=== PATIENT | female | born 1960 | race Caucasian/White ===

== ENCOUNTER 2016-10-12 22:59 | Emergency (ER) | payer OTHER, MEDICAID ==
[~2016-10-12] VITALS: Ht 167.6 cm; Wt 75.0 kg
[~2016-10-12 22:59] MED LIST: IOHEXOL-350 100 ML BOTTLE ONE; SODIUM CHLORIDE 0.9% 10ML VIAL ONE
[2016-10-12] MEDS ORDERED: ONDANSETRON HCL 4MG/2ML VIAL IV STA (23:19)
[2016-10-12] MEDS ORDERED: FAMOTIDINE 20MG/2ML VIAL IV STA (23:19)
[2016-10-12] MEDS ORDERED: MORPHINE SULFATE 4 MG/ML CPJ (NOT FOR IM USE) IV STA (23:19)
[2016-10-12] MEDS ORDERED: SODIUM CHLORIDE 0.9% 1,000 ML IV ONE (23:19)
[2016-10-12] MEDS ORDERED: ASPIRIN 81MG TABLET PO ONE (23:30)
[2016-10-12 23:46] LABS: BASOPHILS % 0.7 % (0.0-2.0); HEMATOCRIT. 42.2 % (36.0-48.0); HEMOGLOBIN. 14.1 g/dL (12.0-16.0); LYMPHOCYTES % 46.2 % (20.0-50.0); MEAN CORPUSCULAR HEMOGLOBIN 32.1 pg (28.0-32.0); MEAN CORPUSCULAR VOLUME 95.9 fL (81.0-99.0); MEAN PLATELET VOLUME 8.4 fl (7.4-10.4); MONOCYTES % 9.1 % (2.0-8.0); PLATELET 122 x1000/uL (130-400); RED CELL DISTRIBUTION WIDTH 15.1 % (11.6-14.6)
[2016-10-12 23:51] LABS: D-DIMER 1.71 mg/L FEU (<0.50); INR 1.4; PROTHROMBIN TIME 14.3 sec
[2016-10-13] LABS: CARBON DIOXIDE 30 mEq/L (21-32); CHLORIDE 105 mEq/L (98-107); ETHANOL BLOOD < 10 mg/dL; TROPONIN I 0.04 ng/mL (0.00-0.04)
[2016-10-13] MEDS ORDERED: SODIUM CHLORIDE 0.9% 1,000 ML IV NR (00:51)
[2016-10-13 01:09] LABS: CLARITY URINE CLOUDY (CLEAR); COLOR URINE YELLOW (YELLOW); GLUCOSE URINE NEGATIVE (NEGATIVE); KETONES URINE NEGATIVE (NEGATIVE); LEUKOCYTE ESTERASE URINE TRACE (NEGATIVE); NITRITE URINE NEGATIVE (NEGATIVE); OCCULT BLOOD URINE TRACE (NEGATIVE); PROTEIN URINE NEGATIVE (NEGATIVE)
[2016-10-13 01:20] LABS: *AMPHETAMINES SCREEN URINE NEGATIVE (NEGATIVE); *BARBITURATES SCREEN URINE NEGATIVE (NEGATIVE); *BENZODIAZEPINES SCREEN URINE NEGATIVE (NEGATIVE); *COCAINE SCREEN URINE NEGATIVE (NEGATIVE); CANNABINOID URINE SCREEN NEGATIVE (NEGATIVE); METHADONE URINE SCREEN NEGATIVE (NEGATIVE); OPIATES URINE SCREEN NEGATIVE (NEGATIVE); PHENCYCLIDINE URINE SCREEN NEGATIVE (NEGATIVE)
[2016-10-13] MEDS ORDERED: CEFTRIAXONE 1 G PREMIX 50 ML IV NR (01:45)
[2016-10-13] MEDS ORDERED: AZITHROMYCIN 250 MG TABLET PO NR (05:15)
[2016-10-13 07:36] VITALS: BP 114/49
== END 2016-10-13 08:49 | disposition home or self-care (01) ==
LOC: ER 23:02
DX: D25.9 Leiomyoma of uterus, unspecified (principal); N39.0 Urinary tract infection, site not specified; J40 Bronchitis, not specified as acute or chronic; J98.4 Other disorders of lung; K74.60 Unspecified cirrhosis of liver; J98.11 Atelectasis; R74.0 Nonspecific elevation of levels of transaminase and lactic acid dehydrogenase [LDH]; I51.7 Cardiomegaly; Z90.49 Acquired absence of other specified parts of digestive tract
CPT/HCPCS: 36415; 71010; 71275; 74176; 80053; 80305; 81001; 83690; 83880; 84484; 85025; 85379; 85610; 87086; 93005; 96361; 96365; 96375; 99285; A4216; G0482; J0696; J2270; J2405; J3490; J7030; Q9967

== ENCOUNTER 2016-11-14 14:52 | Inpatient (IN) | payer OTHER, MEDICAID ==
[~2016-11-14] VITALS: Ht 167.6 cm; Wt 68.0 kg
[2016-11-14] MEDS ORDERED: LEVOFLOXACIN 750MG PREMIX 150 ML IV ONE (15:15)
[2016-11-14] MEDS ORDERED: SODIUM CHLORIDE 0.9% 1000ML BAG (SEPSIS BOLUS) IV ONE (15:15)
[2016-11-14 15:41] LABS: BASOPHILS % 0.4 % (0.0-2.0); HEMATOCRIT. 42.3 % (36.0-48.0); HEMOGLOBIN. 14.2 g/dL (12.0-16.0); LYMPHOCYTES % 18.2 % (20.0-50.0); MEAN CORPUSCULAR HEMOGLOBIN 32.1 pg (28.0-32.0); MEAN CORPUSCULAR VOLUME 95.4 fL (81.0-99.0); MEAN PLATELET VOLUME 8.6 fl (7.4-10.4); NEUTROPHILS % 72.4 % (40.0-76.0); PLATELET 111 x1000/uL (130-400); RED BLOOD CELL COUNT 4.43 mill/uL (4.2-5.4)
[2016-11-14 15:45] LABS: INR 1.4; PARTIAL THROMBOPLASTIN TIME 30.3 sec (23.4-31.0)
[2016-11-14 15:51] LABS: CARBON DIOXIDE 33 mEq/L (21-32); CHLORIDE 104 mEq/L (98-107)
[2016-11-14 15:54] LABS: TROPONIN I 0.02 ng/mL (0.00-0.04)
[2016-11-14 15:54] LABS: BG BASE EXCESS 5.3 mmol/L (-2.0-2.0); BG DEOXYHEMOGLOBIN 12.1 % (0.0-5.0); BG FRACTION INSPIRED OXYGEN 32; BG HCO3 ACT 33.1 mmol/L (22.0-26.0); BG METHEMOGLOBIN 0.2 % (0.0-1.5); BG OXYGEN SATURATION 87.6 % (92.0-98.5); BG OXYHEMOGLOBIN 85.7 % (94.0-97.0); BG PCO2 61.7 mmHg (35.0-45.0); BG PH 7.348 (7.350-7.450); BG PO2 56.2 mmHg (75.0-100.0); BG SAMPLE SITE RIGHT RADIAL; BG TOTAL HEMOGLOBIN 15.4 g/dL (12.0-18.0); BG VENT MODE NASAL CANNULA
[2016-11-14] MEDS ORDERED: ASPIRIN 81MG TABLET PO ONE (17:00)
[2016-11-14] MEDS ORDERED: METHYLPREDNISOLONE SOD SUCC 125 MG/2 ML VIAL IV ONE (17:15)
[2016-11-14 17:50] LABS: CLARITY URINE CLEAR (CLEAR); COLOR URINE YELLOW (YELLOW); GLUCOSE URINE NEGATIVE (NEGATIVE); KETONES URINE NEGATIVE (NEGATIVE); LEUKOCYTE ESTERASE URINE NEGATIVE (NEGATIVE); NITRITE URINE NEGATIVE (NEGATIVE); OCCULT BLOOD URINE NEGATIVE (NEGATIVE); PH URINE 6.5 (4.5-8.0); PROTEIN URINE NEGATIVE (NEGATIVE); SPECIFIC GRAVITY URINE 1.011 (1.005-1.030)
[2016-11-14] MEDS ORDERED: [UNRECOGNIZED DRUG - MIXTURE] (20:00)
[2016-11-14] MEDS ORDERED: AMOX-405 PO (20:00)
[2016-11-14] MEDS ORDERED: [UNRECOGNIZED DRUG - CODE] PO (20:03)
[2016-11-14] MEDS ORDERED: IBUP-1636 PO (20:05)
[2016-11-14 20:06] VITALS: BP 119/67
[2016-11-14 22:00] VITALS: BP 127/71
[2016-11-14] MEDS: SODIUM CHLORIDE 0.9% 1,000 ML IV SCH (22:57)
[2016-11-14] MEDS: METHYLPREDNISOLONE SOD SUCC 40 MG/ML VIAL IV SCH (22:57)
[2016-11-15] VITALS (7 sets, daily range): BP systolic 106–129; BP diastolic 62–72
[2016-11-15] MEDS: IPRATROPIUM/ALBUTEROL 0.5-3(2.5)MG/3ML NEB HHN SCH ×6 (00:27→20:48)
[2016-11-15] MEDS: METHYLPREDNISOLONE SOD SUCC 40 MG/ML VIAL IV SCH ×2 (05:39→13:17)
[2016-11-15] MEDS ORDERED: ENOXAPARIN 40MG/0.4ML SYR SUBCUT SCH (09:00)
[2016-11-15] MEDS: SODIUM CHLORIDE 0.9% 1,000 ML IV SCH (11:28)
[2016-11-15 13:12] LABS: BG CARBOXYHEMOGLOBIN 0.8 % (0.5-1.5); BG DEOXYHEMOGLOBIN 7.7 % (0.0-5.0); BG FRACTION INSPIRED OXYGEN 28; BG HCO3 ACT 29.9 mmol/L (22.0-26.0); BG METHEMOGLOBIN 0.2 % (0.0-1.5); BG OXYGEN SATURATION 92.2 % (92.0-98.5); BG OXYHEMOGLOBIN 91.3 % (94.0-97.0); BG PCO2 50.2 mmHg (35.0-45.0); BG PH 7.393 (7.350-7.450); BG PO2 63.5 mmHg (75.0-100.0); BG SAMPLE SITE RIGHT RADIAL; BG TOTAL HEMOGLOBIN 13.6 g/dL (12.0-18.0); BG VENT MODE NASAL CANNULA
[2016-11-15] MEDS ORDERED: SODIUM CHLORIDE 0.9% 10ML VIAL ONE (14:04)
[2016-11-15] MEDS ORDERED: IOHEXOL-350 100 ML BOTTLE ONE (14:04)
[2016-11-15] MEDS ORDERED: LEVOFLOXACIN 500MG PREMIX 100 ML IV SCH (16:00)
[2016-11-15 16:09] LABS: BASOPHILS % 0.1 % (0.0-2.0); HEMATOCRIT. 39.3 % (36.0-48.0); LYMPHOCYTES % 12.5 % (20.0-50.0); MEAN CORPUSCULAR HEMOGLOBIN 31.6 pg (28.0-32.0); MEAN CORPUSCULAR VOLUME 95.6 fL (81.0-99.0); MEAN PLATELET VOLUME 8.6 fl (7.4-10.4); MONOCYTES % 5.1 % (2.0-8.0); NEUTROPHILS % 82.3 % (40.0-76.0); PLATELET 101 x1000/uL (130-400); RED BLOOD CELL COUNT 4.11 mill/uL (4.2-5.4); RED CELL DISTRIBUTION WIDTH 15.3 % (11.6-14.6)
[2016-11-15 16:25] LABS: CARBON DIOXIDE 32 mEq/L (21-32); CHLORIDE 106 mEq/L (98-107)
== END 2016-11-15 22:25 | DRG 189 ==
LOC: ER 14:52 → 5WST 17:04 → EDBEDREQ 17:07 → ENRESERV 17:13
PROVIDERS: ADMIT Internal Medicine; ATTEND Internal Medicine
DX: J96.01 Acute respiratory failure with hypoxia (principal); J18.9 Pneumonia, unspecified organism; E44.0 Moderate protein-calorie malnutrition; G71.11 Myotonic muscular dystrophy; J96.02 Acute respiratory failure with hypercapnia; Z79.1 Long term (current) use of non-steroidal anti-inflammatories (NSAID); Z79.899 Other long term (current) drug therapy; Z90.49 Acquired absence of other specified parts of digestive tract
CPT/HCPCS: 36415; 36600; 71010; 71275; 80048; 80053; 81003; 82375; 82805; 83605; 83880; 84484; 85025; 85610; 85730; 86850; 86900; 87040; 87086; 93005; 94640; 94664; 96374; 99285; A4216; J1650; J1956; J2920; J2930; J7030; J7620; Q9967